=== PATIENT | male | born 1945 | race Caucasian/White ===

== ENCOUNTER 2022-12-10 09:22 | Outpatient (CLI) | payer MEDICARE, BC, SELFPAY | END 2022-12-10 09:23 | disposition home or self-care (01) | LOC: NFLDREF 12-12 09:11 | PROVIDERS: Visit Provider Nurse Practitioner Family | DX: R35.89 Other polyuria (principal); N39.0 Urinary tract infection, site not specified | CPT/HCPCS: 87086; 87186 ==

== ENCOUNTER 2023-10-12 20:20 | Inpatient (IN) | payer MEDICARE, BC, SELFPAY ==
[2023-10-12 20:24] VITALS: BP 128/88; PULSE 108; RESP 18; TEMP 37.3; O2SAT 96; BMI 25.8
--- NOTE | 2023-10-12 20:41 | CT_ITS ---
Patient: BRYAN RUBIO Facility:?[facility] Patient ID:?[id number] Site Patient ID:?[id number] Site :?[id number] Study:?CT-Abdomen/Pelvis 89CC ISOVUE 370-10/12/2023 9:25:37 PM Ordering Physician:?DR. MONK Final Report: INDICATION: Right lower quadrant pain. TECHNIQUE: CT abdomen and pelvis acquired with 89 cc Isovue 370 IV contrast. COMPARISON: None. FINDINGS: Lower chest: Bibasilar atelectasis. Liver: Unremarkable. Normal in size and attenuation. No suspicious masses. Gallbladder and bile ducts: Unremarkable. No stones or inflammation. No biliary ductal dilatation. Spleen: Unremarkable. Normal in size. No masses. Adrenal glands: Unremarkable. No nodules. Pancreas: Unremarkable. No mass or inflammation. Kidneys: Right parapelvic cysts. Multiple bilateral nonobstructive renal calculi. No hydronephrosis. GI tract: Small hiatal hernia. Multiple fluid-filled distended loops of small bowel with a transition point in the right lower quadrant. Colonic diverticulosis without evidence of diverticulitis. Normal appendix. Lymph nodes: No lymphadenopathy. Vasculature: Scattered atherosclerotic calcifications. Omentum/Peritoneum/Abdominal Wall: Small amount of free fluid predominantly in the pelvis. No focal fluid collection. No free air. Pelvis: Unremarkable. Bones: Degenerative changes. IMPRESSION: 1. Small bowel obstruction. 2. Bilateral nonobstructive nephrolithiasis. 3. Colonic diverticulosis without evidence of diverticulitis. Please note that all CT scans at this facility use dose modulation, iterative reconstruction, and/or weight-based dosing when appropriate to reduce radiation dose to as low as reasonably achievable. Dictated by Yaw Bella MD @ 10/12/2023 10:26:03 PM Signed by:?Yaw Bella MD @10/12/2023 10:26:03 PM (Electronic Signature)
--- NOTE | 2023-10-12 20:44 | ED.ABDPAIN ---
HPI - Abdominal Pain General Chief Complaint: Abdominal Pain Stated Complaint: Stomach pain and vomiting Time Seen by Provider: 10/12/23 20:24 History of Present Illness HPI narrative: This 78-year-old male comes in reporting 2 days of abdominal pain with nausea and vomiting. He states that he vomited about 6 times today. He has not taken anything to eat and states that he has not had any bowel movement or gas today. He does not have a prior surgery history to his abdomen. He states that he felt diaphoretic but did not actually measure a temperature. He reports that his pain is better managed we if he remains still. The pain is a constant pain. Related Data Home Medications Medication Instructions Recorded Confirmed losartan 50 mg tablet 50 mg PO DAILY 12/10/22 12/10/22 rosuvastatin 20 mg tablet 20 mg PO QPM 12/10/22 12/10/22 Previous Rx's Medication Instructions Recorded sulfamethoxazole 800 1 tab PO BID #14 tabs 12/10/22 mg-trimethoprim 160 mg tablet (Bactrim DS) Allergies Allergy/AdvReac Type Severity Reaction Status Date / Time No Known Drug Allergies Allergy Verified 10/12/23 21:26 Review of Systems Status of ROS Reports: 10 or more systems reviewed and unremarkable except as noted in History and below Narrative Constitutional: No fevers, no weight gain or loss. Eyes: No discharge. No vision changes. HENT: No congestion, no sore throat, no ear pain. Cardiovascular: No chest pain, no palpitations. Respiratory: No shortness of breath, no wheezes, no cough. Gastrointestinal: Right lower quadrant abdominal pain with nausea and vomiting. Genitourinary: No dysuria, no hematuria. Musculoskeletal: Normal range of motion. Skin: No rashes, no pruritis. Neurological: No dizziness, weakness, sensory change, speech change. Endo/Heme/Allergies: No bruising or bleeding. No polydipsia. Pysch: no suicidality, no anxiety, no insomnia. All other systems reviewed and are negative. [facility] Medical History (Updated 10/12/23 @ 23:13 by Ernie Pressley MD) UTI (urinary tract infection) ?N39.0 - Urinary tract infection, site not specified (ICD-10) Social History Smoking Status: Never smoker Exam Narrative: Exam Narrative: Constitutional: Well-developed, well-nourished, no acute distress. HEENT: Normocephalic, atraumatic. Neck: Normal range of motion. Nontender. Supple. Heart: Regular. No murmurs. Normal rate. Intact distal pulses. Lungs: Clear to auscultation. No chest discomfort. No wheezes, rhonchi, or rales. Abdomen: Decreased bowel sounds. Tenderness across the lower abdomen, right greater than left. Mild rebound tenderness. Genitalia: Deferred. Back: No midline tenderness. Normal range of motion. Extremities: Normal range of motion. No injury. Skin: Intact. No rash. Warm. No erythema or pallor. Neurologic: No altered sensation. No weakness. Alert and oriented. Psychiatric: No suicidality. No anxiety or depression. No insomnia. Nursing notes and vitals signs are reviewed. Const: Vital Signs, click to edit/add: Vital Signs - 24 hr 10/12/23 20:24 Temperature 99.2 F Pulse Rate [Left P ulse Oximeter] 108 H Respiratory Rate 18 Blood Pressure [Le ft Upper Arm] 128/88 Pulse Oximetry 96 Oxygen Delivery Me thod Room Air Course Vital Signs Vital signs: Initial Vital Signs Temperature 99.2 F 10/12/23 20:24 Temperature Source Temporal Artery Scan 10/12/23 20:24 Pulse Rate 108 H 10/12/23 20:24 Pulse Rhythm Regular 10/12/23 20:24 Respiratory Rate 18 10/12/23 20:24 Blood Pressure 128/88 10/12/23 20:24 Blood Pressure Mean 101 10/12/23 20:24 Blood Pressure Position Sitting 10/12/23 20:24 Pulse Oximetry 96 10/12/23 20:24 Oxygen Delivery Method Room Air 10/12/23 20:24 Vital Signs Temperature 99.2 F 10/12/23 20:24 Pulse Rate 108 H 10/12/23 20:24 Respiratory Rate 18 10/12/23 20:24 Blood Pressure 128/88 10/12/23 20:24 Pulse Oximetry 96 10/12/23 20:24 Oxygen Delivery Method Room Air 10/12/23 20:24 Temperature 99.2 F 10/12/23 20:24 Pulse Rate 108 H 10/12/23 20:24 Respiratory Rate 18 10/12/23 20:24 Blood Pressure 128/88 10/12/23 20:24 Pulse Oximetry 96 10/12/23 20:24 Oxygen Delivery Method Room Air 10/12/23 20:24 Medications Administered Medications: Discontinued Medications Generic Name Dose Route Start Last Admin Trade Name Danii PRN Reason Stop Dose Admin Hydromorphone HCl 0.5 mg 10/12/23 20:43 10/12/23 21:00 Hydromorphone 0.5 Mg/0.5 Ml Inj IVP 10/12/23 20:44 0.5 mg ONCE ONE Administration Sodium Chloride 1,000 mls @ 1,000 mls/hr 10/12/23 20:45 10/12/23 22:11 0.9 % Sodium Chloride 1000 Ml IV 10/12/23 21:44 Infused .Q1H MICHAEL Infusion Ondansetron HCl 4 mg 10/12/23 20:43 10/12/23 21:17 Ondansetron 2 Mg/Ml Inj IVP 10/12/23 20:44 4 mg ONCE ONE Administration MDM - Abdominal Pain MDM Narrative Medical decision making narrative: This patient comes in with abdominal pain as described above. He has had persistent vomiting and reports no gas her stool being passed in the last day or so. A CT scan of the abdomen and pelvis is obtained and returns with evidence of bowel obstruction with a transition point in the right lower quadrant. He does have a white count of around 20,000 but also his hemoglobin is elevated at 17.7. He clearly is volume depleted and did receive a L of normal saline initially. Additional fluids are ordered and administered in the process of admission into the hospital. I did speak with the surgeon on-call, Dr. Sevilla, regarding these findings. His lactate level returns in normal range. Dr. Easton agrees to admit him into the hospital for ongoing management. Lab Data Labs: Lab Results 10/12/23 10/12/23 Range/Units 20:39 22:50 WBC 20.49 H (4.50-11.00) K/uL RBC 5.97 H (4.30-5.90) m/uL Hgb 17.7 H (13.5-17.5) gm/dL Hct 53.0 (37.0-53.0) % MCV 89 (80-100) fL MCH 30 (26-34) pg MCHC 33 (32-36) gm/dL RDW Coeff of Jani 12.6 (11.5-15.5) % Plt Count 312 (140-440) K/uL Neut % (Auto) 91.2 H (42.0-72.0) % Lymph % (Auto) 4.4 L (20-44) % Towner % (Auto) 4.1 (0.0-11.0) % Eos % (Auto) 0.0 (0.0-7.0) % Baso % (Auto) 0.1 (0.0-3.0) % Neut # (Auto) 18.70 H (1.7-7.0) K/uL Lymph # (Auto) 0.90 (0.90-2.90) K/uL Towner # (Auto) 0.80 (0.00-0.90) K/UL Eos # (Auto) 0.00 (0.00-0.50) K/uL Baso # (Auto) 0.00 (0.00-0.30) K/uL Abs Immat Gran (auto) 0.00 (0.00-0.30) K/uL Imm/Tot Granulo (auto) 0.2 % Sodium 140 (135-149) mmol/L Potassium 4.1 (3.6-5.1) mmol/L Chloride 108 (96-114) mmol/L Carbon Dioxide 26 (20-32) mmol/L Anion Gap 6 L (7-15) mEq/L BUN 17 (7-30) mg/dL Creatinine 1.0 (0.5-1.5) mg/dL Estimated Creat Clear 64.89 Estimated GFR 78 ml/min Glucose 144 H (60-115) mg/dL Lactate 0.9 (0.5-1.9) mmol/L Calcium 9.4 (8.4-10.6) mg/dL Imaging Data CT scan - abdomen: Radiologist's impression: FINDINGS: Lower chest: Bibasilar atelectasis. Liver: Unremarkable. Normal in size and attenuation. No suspicious masses. Gallbladder and bile ducts: Unremarkable. No stones or inflammation. No biliary ductal dilatation. Spleen: Unremarkable. Normal in size. No masses. Adrenal glands: Unremarkable. No nodules. Pancreas: Unremarkable. No mass or inflammation. Kidneys: Right parapelvic cysts. Multiple bilateral nonobstructive renal calculi. No hydronephrosis. GI tract: Small hiatal hernia. Multiple fluid-filled distended loops of small bowel with a transition point in the right lower quadrant. Colonic diverticulosis without evidence of diverticulitis. Normal appendix. Lymph nodes: No lymphadenopathy. Vasculature: Scattered atherosclerotic calcifications. Omentum/Peritoneum/Abdominal Wall: Small amount of free fluid predominantly in the pelvis. No focal fluid collection. No free air. Pelvis: Unremarkable. Bones: Degenerative changes. IMPRESSION: 1. Small bowel obstruction. 2. Bilateral nonobstructive nephrolithiasis. 3. Colonic diverticulosis without evidence of diverticulitis. Discharge Plan Discharge Clinical Impression: Bowel obstruction Patient Disposition: Admitted As Observation Condition: Unchanged Prescriptions: No Action losartan 50 mg tablet 50 mg PO DAILY rosuvastatin 20 mg tablet 20 mg PO QPM sulfamethoxazole-trimethoprim [Bactrim DS] 800-160 mg tablet 1 tab PO BID Qty: 14 0RF Follow Up/Referrals: Provider,Not a Local [Primary Care Provider] -
[2023-10-12 20:51] LABS: Basophils Percent Auto 0.1 % (0.0-3.0); Hemoglobin* 17.7 gm/dL (13.5-17.5); Immature Granulocytes Pct Auto 0.2 %; Lymphocytes Percent Auto 4.4 % (20-44); Mean Corpuscular HGB Conc 33 gm/dL (32-36); Mean Corpuscular Hemoglobin 30 pg (26-34); Mean Corpuscular Volume 89 fL (80-100); Monocytes Percent Auto 4.1 % (0.0-11.0); Neutrophils Percent Auto 91.2 % (42.0-72.0); Platelet Count* 312 K/uL (140-440); RDW Coefficient of Variation % 12.6 % (11.5-15.5); Red Blood Count 5.97 m/uL (4.30-5.90); White Blood Count* 20.49 K/uL (4.50-11.00)
[2023-10-12] MEDS: HYDROmorphone 0.5 mg/0.5 ml inj IVP (21:00)
[2023-10-12 21:01] LABS: Slide Review Reflex No
[2023-10-12 21:05] LABS: Chloride* 108 mmol/L (96-114); Potassium* 4.1 mmol/L (3.6-5.1); Sodium* 140 mmol/L (135-149)
[2023-10-12 21:08] LABS: Anion Gap 6 mEq/L (7-15); Blood Urea Nitrogen* 17 mg/dL (7-30); Carbon Dioxide* 26 mmol/L (20-32); Est. Creatinine Clearance* 64.89; Estimated Glomerular Filt Rate 78 ml/min
[2023-10-12 21:09] LABS: Calcium* 9.4 mg/dL (8.4-10.6); Glucose* 144 mg/dL (60-115)
[2023-10-12] MEDS: ONDANSETRON 2 MG/ML inj 4 MG IVP (21:17)
[2023-10-12] MEDS: 0.9 % SODIUM CHLORIDE 1000 ml 1,000 ML IV (21:18)
[2023-10-12 22:54] LABS: Lactate* 0.9 mmol/L (0.5-1.9)
[2023-10-12 23:10] LABS: Albumin* 3.7 g/dL (3.3-5.0)
[2023-10-12 23:13] LABS: Alkaline Phosphatase* 77 U/L (40-150); Aspartate Amino Transferase* 20 U/L (12-35); Bilirubin Total* 1.5 mg/dL (0.1-1.5); Total Protein* 6.5 g/dL (6.0-8.3)
--- NOTE | 2023-10-12 23:13 | PM.EN ---
Chart Event Note Chart Event Note: Called by ER about this patient with 2 days of abdominal pain. CT showing de gonzalo bowel obstruction, WBC returned markedly elevated at 20 but also with hgb of 17.7 - has been vomiting x 2 days - likely a component of hemoconcentration. Tachycardic to 108 which resolved with fluids. Lactate normal. No sign of bowel ischemia or internal hernia or mass on CT. discussed with hospitalist. WBC is concerning. will give fluids for dehydration and monitor overnight. If pain worsens, patient again develops tachycardia, fever or any other worsening changes, will plan on emergent exploration. Recheck labs in the morning and I will follow up with patient. Will consider gastrograffin challenge in the morning if patient is stable. I did not examine the patient at the time of this note.
[2023-10-12 23:14] LABS: Alanine Aminotransferase* 24 U/L (4-50)
[2023-10-12] MEDS: LACTATED RINGERS 1000 ML 1,000 ML IV (23:20)
--- NOTE | 2023-10-12 23:29 | PM.IMHP1 ---
Hospitalist- H&P: HPI History of Present Illness Date Seen: 10/12/23 Chief complaint: Stomach pain and vomiting Narrative: Clive Buck is a 78 year old male with history of hypertension, kidney stones, tubular adenomas in his colon, gastroesophageal reflux presents with a 1 day history of low abdominal pain and recurrent vomiting. Patient reports he was in his usual state of health yesterday. He ate a normal meal last evening. After that meal he started to have some low abdominal discomfort. He felt the discomfort through the night and this morning started vomiting up last night's dinner. Today he is not passing gas and has not had a bowel movement. He had a normal bowel movement yesterday. He has not had a fever but has been diaphoretic when vomiting. He has no previous history of abdominal surgery. 2 years ago he had a colonoscopy with multiple tubular adenomas. Repeat colonoscopy 1 year ago also showed tubular adenomas and he was recommended to have a another colonoscopy in 3 years. Review of Systems Narrative: Except as noted above he has had no recent illness or injury. No cold or cough, shortness of breath, chest pain. No previous problems with abdominal pain or vomiting. No other gastrointestinal illnesses. Previous history of kidney stones. No current urinary symptoms. [facility] Medical History (Updated 10/12/23 @ 23:41 by Desmond Easton MD) Small bowel obstruction ?K56.609 - Unspecified intestinal obstruction, unspecified as to partial versus complete obstruction (ICD-10) Low testosterone in male ?R79.89 - Other specified abnormal findings of blood chemistry (ICD-10) Gastroesophageal reflux disease ?K21.9 - Gastro-esophageal reflux disease without esophagitis (ICD-10) Hyperlipidemia ?E78.5 - Hyperlipidemia, unspecified (ICD-10) Hypertension ?I10 - Essential (primary) hypertension (ICD-10) Tubular adenoma of colon ?D12.6 - Benign neoplasm of colon, unspecified (ICD-10) Nephrolithiasis ?N20.0 - Calculus of kidney (ICD-10) UTI (urinary tract infection) ?N39.0 - Urinary tract infection, site not specified (ICD-10) Surgical History (Updated 10/12/23 @ 23:34 by Desmond Easton MD) History of colonoscopy ?Z98.890 - Other specified postprocedural states (ICD-10) Family History (Updated 10/12/23 @ 23:35 by Desmond Easton MD) Mother Colon cancer Father Esophageal cancer Brother Plasma cell leukemia Social History (Updated 10/12/23 @ 23:36 by Desmond Easton MD) Narrative: He lives in [place] with his . 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 He does not smoke. He drinks 1-2 alcoholic beverages per week. Smoking Status: Never smoker Meds Home Medications and Allergies Home Medications Medication Instructions Recorded Confirmed Type losartan 50 mg tablet 50 mg PO DAILY 12/10/22 10/12/23 History rosuvastatin 20 mg tablet 20 mg PO QPM 12/10/22 10/12/23 History famotidine 20 mg tablet 20 mg PO DAILY 10/12/23 10/12/23 History Allergies Allergy/AdvReac Type Severity Reaction Status Date / Time No Known Drug Allergies Allergy Verified 10/12/23 21:26 Exam Narrative: Exam Narrative: He is alert and appears in no distress. He gives his own history. Eyes normal. Sclerae nonicteric. Oropharynx with dry mucous membranes. Neck is supple without mass or adenopathy. Respirations are clear to auscultation. Cardiovascular: S1, S2, regular rate and rhythm. No murmur gallop or rub. Abdomen: Bowel sounds are diminished. Abdomen is soft. He has moderate right lower quadrant tenderness. No other tenderness. No mass. No peritonitis. Abdomen is not particularly distended. External genitalia normal. Extremities without edema. Good peripheral perfusion. Intact pulses. No rash Const: Vital Signs, click to edit/add: Vital Signs - 24 hr 10/12/23 20:24 Temperature 99.2 F Pulse Rate [Left P ulse Oximeter] 108 H Respiratory Rate 18 Blood Pressure [Le ft Upper Arm] 128/88 Pulse Oximetry 96 Oxygen Delivery Me thod Room Air Documenting provider has reviewed patient's vital signs: yes Hospitalist - H&P: Result Labs Labs: Short CBC 10/12/23 Range/Units 20:39 WBC 20.49 H (4.50-11.00) K/uL Hgb 17.7 H (13.5-17.5) gm/dL Hct 53.0 (37.0-53.0) % Plt Count 312 (140-440) K/uL BMP 10/12/23 20:39 Sodium 140 Potassium 4.1 Chloride 108 Carbon Dioxide 26 BUN 17 Creatinine 1.0 Glucose 144 H Calcium 9.4 Liver Function 10/12/23 Range/Units 22:50 Total Bilirubin 1.5 (0.1-1.5) mg/dL Direct Bilirubin 0.0 (0.0-0.5) mg/dL AST 20 (12-35) U/L ALT 24 (4-50) U/L Alkaline Phosphatase 77 (40-150) U/L Albumin 3.7 (3.3-5.0) g/dL Imaging CT scan - abdomen: Radiologist's impression: INDICATION: Right lower quadrant pain. TECHNIQUE: CT abdomen and pelvis acquired with 89 cc Isovue 370 IV contrast. COMPARISON: None. FINDINGS: Lower chest: Bibasilar atelectasis. Liver: Unremarkable. Normal in size and attenuation. No suspicious masses. Gallbladder and bile ducts: Unremarkable. No stones or inflammation. No biliary ductal dilatation. Spleen: Unremarkable. Normal in size. No masses. Adrenal glands: Unremarkable. No nodules. Pancreas: Unremarkable. No mass or inflammation. Kidneys: Right parapelvic cysts. Multiple bilateral nonobstructive renal calculi. No hydronephrosis. GI tract: Small hiatal hernia. Multiple fluid-filled distended loops of small bowel with a transition point in the right lower quadrant. Colonic diverticulosis without evidence of diverticulitis. Normal appendix. Lymph nodes: No lymphadenopathy. Vasculature: Scattered atherosclerotic calcifications. Omentum/Peritoneum/Abdominal Wall: Small amount of free fluid predominantly in the pelvis. No focal fluid collection. No free air. Pelvis: Unremarkable. Bones: Degenerative changes. IMPRESSION: 1. Small bowel obstruction. 2. Bilateral nonobstructive nephrolithiasis. 3. Colonic diverticulosis without evidence of diverticulitis. Assessment and Plan Assessment and plan (1) Small bowel obstruction: Problem comment: Small-bowel obstruction with no apparent cause. Consult General surgery. Supportive cares with IV fluids. Pain medication. NPO. NG tube if recurrent vomiting. Status: Acute Plan Patient is admitted the hospital for management of small bowel obstruction of uncertain etiology. Consult surgery. Supportive cares with IV fluids and IV pain medication. Monitoring for clinical deterioration which would likely lead to surgical intervention. Total Time Spent Total Time Spent: Total time spent is 80 minutes, 50 minutes in coordination of care and discussing with patient, and other providers ongoing evaluation and management of small bowel obstruction.
[2023-10-12 23:35] VITALS: BP 143/81; PULSE 72; RESP 18; TEMP 36.4; O2SAT 96
[2023-10-12 23:39] VITALS: BP 143/81; PULSE 72; RESP 18; TEMP 36.4; O2SAT 96; BMI 26.2
[2023-10-13] VITALS (21 sets, daily range): BP systolic 105–150; BP diastolic 60–93; PULSE 51–75; RESP 12–22; TEMP 36.1–36.8; O2SAT 9–100
[2023-10-13] MEDS: LACTATED RINGERS 1000 ML 1,000 ML 125 ML IV ×2 (00:31→10:02)
[2023-10-13] MEDS: HYDROmorphone 0.5 mg/0.5 ml inj IVP (00:34)
[2023-10-13 06:24] LABS: Lactate* 0.9 mmol/L (0.5-1.9)
[2023-10-13 06:37] LABS: Basophils Percent Auto 0.1 % (0.0-3.0); Eosinophils Percent Auto 0.3 % (0.0-7.0); Hematocrit 43.9 % (37.0-53.0); Hemoglobin* 14.6 gm/dL (13.5-17.5); Immature Granulocytes Pct Auto 0.1 %; Lymphocytes Percent Auto 7.2 % (20-44); Mean Corpuscular HGB Conc 33 gm/dL (32-36); Mean Corpuscular Hemoglobin 30 pg (26-34); Mean Corpuscular Volume 90 fL (80-100); Monocytes Percent Auto 8.3 % (0.0-11.0); Platelet Count* 230 K/uL (140-440); Red Blood Count 4.88 m/uL (4.30-5.90)
[2023-10-13 06:38] LABS: Slide Review Reflex No
[2023-10-13 06:48] LABS: Chloride* 112 mmol/L (96-114); Potassium* 4.1 mmol/L (3.6-5.1); Sodium* 139 mmol/L (135-149)
--- NOTE | 2023-10-13 06:50 | PC.NURSE ---
End of shift note: Pt arrived to med/surg unit at 2330 last evening. He is alert & oriented x 4 and able to make needs known. He denied nausea when asked throughout the shift with no vomiting noted throughout the shift. Bowel sounds noted to be diminished/hypoactive and pt reports tenderness to RLQ when asked. PRN Dilaudid given for abdominal pain. LR running at 125 mL/hr after pt received 1 L of LR per order. Pt has been continent of bladder and is up independently in room. Order for NPO diet currently in place. VSS. EKG completed per order with NSR noted. Pt?s Terri requests that staff call her if pt has to have surgery. Pt refused SCDs and MARKY stockings this shift despite education provided. Pt states abdominal pain is minimal when asked this morning and declined PRN Dilaudid when offered.
[2023-10-13 06:51] LABS: Anion Gap 1 mEq/L (7-15); Blood Urea Nitrogen* 15 mg/dL (7-30); Carbon Dioxide* 26 mmol/L (20-32); Creatinine* 0.9 mg/dL (0.5-1.5); Est. Creatinine Clearance* 64.89; Estimated Glomerular Filt Rate 89 ml/min; Glucose* 114 mg/dL (60-115)
[2023-10-13 06:52] LABS: Calcium* 8.2 mg/dL (8.4-10.6)
--- NOTE | 2023-10-13 08:28 | P.GSCN_ITS ---
History of Present Illness Consult details Date Seen: 10/13/23 Consult date: 10/13/23 Narrative: On is a 78-year-old male who presented to the emergency department last evening with abdominal pain for several days. He states that Monday evening he ate and then he developed pain and gas. He thought it was something that he ate. He states that he had an odd taste in his mouth with this. Yesterday he went to go to the bathroom and he vomited undigested food. However his pain continued. He thought that if it had been something he had eaten he might of had diarrhea, however he has not really had a bowel movement since this started. He states he strained and tried to have a bowel movement which resulted in a very small bowel movement. He has had persistent pain as well as nausea and vomiting all day yesterday. He stated that he has felt weak and also had chills as well as a headache. He has not had a fever. He states the pain is worse with certain positions. It is mainly in his right lower quadrant. He has never had anything like this before. Pain medication has helped to dull the pain however it is still present. He states that yesterday he thinks he may have vomited at least a gal of liquid. He has had regular colonoscopies and has had large tubular adenomas in the past. His last colonoscopy was a 3 year follow-up. He has not eaten in 2 days. He was found in the ER to have what appeared to be a small bowel obstruction with a transition point in the right lower quadrant. Initially his white count was very high at 20 however his hemoglobin was 17.7, indicating hemoconcentration. Therefore, decision was made to observe him overnight given that he did not have signs of peritonitis and lactate was normal. This morning he continues to have pain which is better he states because of pain medication, however still present. No further nausea. He has not had any gas or bowel movement. [facility] Medical History (Updated 10/12/23 @ 23:41 by Desmond Easton MD) Small bowel obstruction ?K56.609 - Unspecified intestinal obstruction, unspecified as to partial versus complete obstruction (ICD-10) Low testosterone in male ?R79.89 - Other specified abnormal findings of blood chemistry (ICD-10) Gastroesophageal reflux disease ?K21.9 - Gastro-esophageal reflux disease without esophagitis (ICD-10) Hyperlipidemia ?E78.5 - Hyperlipidemia, unspecified (ICD-10) Hypertension ?I10 - Essential (primary) hypertension (ICD-10) Tubular adenoma of colon ?D12.6 - Benign neoplasm of colon, unspecified (ICD-10) Nephrolithiasis ?N20.0 - Calculus of kidney (ICD-10) UTI (urinary tract infection) ?N39.0 - Urinary tract infection, site not specified (ICD-10) Surgical History (Updated 10/12/23 @ 23:34 by Desmond Easton MD) History of colonoscopy ?Z98.890 - Other specified postprocedural states (ICD-10) Family History (Updated 10/13/23 @ 08:34 by Parisa Sevilla MD) Mother Colon cancer Father Esophageal cancer Brother Plasma cell leukemia Social History (Updated 10/12/23 @ 23:36 by Desmond Easton MD) Narrative: He lives in [place] with his . 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 He does not smoke. He drinks 1-2 alcoholic beverages per week. What is your current living situation?: I presently have a place to live Problems where you live: no known problems Problems where you live details: N/A In the past 12 months, utilities in danger of being shut off: no In past 12 months, lack of transportation kept you from medical appts, meetings, work, or getting things needed for daily living: no In the past 12 mos, have been you worried that your food would run out before you had money to buy more?: never true In the past 12 mos, the food you bought just didn't last and you didn't have money to buy more?: never true Highest level of school completed/degree received: Master's degree Smoking Status: Never smoker Do you use any of these nicotine containing products: None Second hand tobacco smoke exposure: No How often do you have a drink containing alcohol: never How often do you have six or more drinks on one occasion: Never AUDIT-C Alcohol total score: 0 Non-prescribed substance use: denies use Caffeine: No How often does anyone, including family, friends and others, physically hurt you : never How often does anyone, including family, friends and others, insult or talk down to you: never How often does anyone, including family, friends and others, threaten you with harm: never How often does anyone, including family, friends and others, scream or curse at you: never service: No Meds Home Medications and Allergies Home Medications Medication Instructions Recorded Confirmed Type losartan 50 mg tablet 50 mg PO DAILY 12/10/22 10/12/23 History rosuvastatin 20 mg tablet 20 mg PO QPM 12/10/22 10/12/23 History famotidine 20 mg tablet 20 mg PO DAILY 10/12/23 10/12/23 History Allergies Allergy/AdvReac Type Severity Reaction Status Date / Time No Known Drug Allergies Allergy Verified 10/12/23 21:26 Exam Narrative: Exam Narrative: General appearance: Alert, cooperative, and in no distress Eyes: PERRLA, eye lids clear, and sclera white HENT Head: Normocephalic Ears: External ears normal Pulmonary: Breathing nonlabored on room air Cardiovascular Heart: Regular rate Extremities: warm and well perfused Gastrointestinal Abdominal: No scars. Abdomen is possibly mildly distended. It is soft. He is fairly focally tender in the right lower quadrant. He has no guarding or rebound. Musculoskeletal: Extremities: Upper: Both upper extremities have normal joint range of motion and intact strength. Lower: Both lower extremities have normal joint range of motion and intact strength. Skin: Normal skin color, texture, and turgor. Neurologic: No focal deficits Psychiatric: Alert, oriented, cooperative, normal affect. Const: Vital Signs, click to edit/add: Vital Signs - 24 hr 10/12/23 20:24 10/12/23 23:35 10/12/23 23:39 Temperature 99.2 F 97.6 F 97.6 F Pulse Rate [Left P ulse Oximeter] 108 H Pulse Rate [Right Pulse Oximeter] 72 72 Respiratory Rate 18 18 18 Blood Pressure [Le ft Upper Arm] 128/88 Blood Pressure [Ri ght Arm] 143/81 H 143/81 H Pulse Oximetry 96 96 96 Oxygen Delivery Me thod Room Air Room Air Room Air 10/13/23 00:00 10/13/23 03:22 Temperature 97.8 F Pulse Rate [Left P ulse Oximeter] Pulse Rate [Right Pulse Oximeter] 66 Respiratory Rate 18 16 Blood Pressure [Le ft Upper Arm] Blood Pressure [Ri ght Arm] 117/70 Pulse Oximetry 96 91 Oxygen Delivery Me thod Room Air Room Air Results Labs Labs: Abnormal lab results 10/12/23 10/13/23 Range/Units 20:39 06:02 WBC 20.49 H 15.10 H (4.50-11.00) K/uL RBC 5.97 H (4.30-5.90) m/uL Hgb 17.7 H (13.5-17.5) gm/dL Neut % (Auto) 91.2 H 84.0 H (42.0-72.0) % Lymph % (Auto) 4.4 L 7.2 L (20-44) % Neut # (Auto) 18.70 H 12.70 H (1.7-7.0) K/uL Treasure # (Auto) 1.30 H (0.00-0.90) K/UL Anion Gap 6 L 1 L (7-15) mEq/L Glucose 144 H (60-115) mg/dL Calcium 8.2 L (8.4-10.6) mg/dL Diabetes panel 10/12/23 10/12/23 10/13/23 Range/Units 20:39 22:50 06:02 Sodium 140 139 (135-149) mmol/L Potassium 4.1 4.1 (3.6-5.1) mmol/L Chloride 108 112 (96-114) mmol/L Carbon Dioxide 26 26 (20-32) mmol/L BUN 17 15 (7-30) mg/dL Creatinine 1.0 0.9 (0.5-1.5) mg/dL Glucose 144 H 114 (60-115) mg/dL Calcium 9.4 8.2 L (8.4-10.6) mg/dL AST 20 (12-35) U/L ALT 24 (4-50) U/L Alkaline Phosphatase 77 (40-150) U/L Total Protein 6.5 (6.0-8.3) g/dL Albumin 3.7 (3.3-5.0) g/dL Calcium panel 10/12/23 10/12/23 10/13/23 Range/Units 20:39 22:50 06:02 Calcium 9.4 8.2 L (8.4-10.6) mg/dL Albumin 3.7 (3.3-5.0) g/dL Pituitary panel 10/12/23 10/13/23 Range/Units 20:39 06:02 Sodium 140 139 (135-149) mmol/L Potassium 4.1 4.1 (3.6-5.1) mmol/L Chloride 108 112 (96-114) mmol/L Carbon Dioxide 26 26 (20-32) mmol/L BUN 17 15 (7-30) mg/dL Creatinine 1.0 0.9 (0.5-1.5) mg/dL Glucose 144 H 114 (60-115) mg/dL Calcium 9.4 8.2 L (8.4-10.6) mg/dL Adrenal panel 10/12/23 10/12/23 10/13/23 Range/Units 20:39 22:50 06:02 Sodium 140 139 (135-149) mmol/L Potassium 4.1 4.1 (3.6-5.1) mmol/L Chloride 108 112 (96-114) mmol/L Carbon Dioxide 26 26 (20-32) mmol/L BUN 17 15 (7-30) mg/dL Creatinine 1.0 0.9 (0.5-1.5) mg/dL Glucose 144 H 114 (60-115) mg/dL Calcium 9.4 8.2 L (8.4-10.6) mg/dL Total Bilirubin 1.5 (0.1-1.5) mg/dL AST 20 (12-35) U/L ALT 24 (4-50) U/L Alkaline Phosphatase 77 (40-150) U/L Total Protein 6.5 (6.0-8.3) g/dL Albumin 3.7 (3.3-5.0) g/dL All other labs normal. Imaging Abdomen CT scan report/results: report reviewed and image reviewed Additional studies: CT Scan Report Patient: Bryan Rubio V MR#: [id number] : 1945 Acct:[id number] Loc: [id number] Service Date: 10/12/[address]: Desmond Easton M.D. Ordering Physician: Ernie Pressley M.D. Date of Service: 10/12/23 Procedure(s): CT abdomen pelvis w con Accession Number(s): [id number] cc: Ernie Pressley M.D.; Provider,Not a Local~ Patient: BRYAN RUBIO Facility:?[facility] Patient ID:?[id number] Site Patient ID:?[id number] Site :?1945 Study:?CT-Abdomen/Pelvis 89CC ISOVUE 370-10/12/2023 9:25:37 PM Ordering Physician:?DR. PRESSLEY Final Report: INDICATION: Right lower quadrant pain. TECHNIQUE: CT abdomen and pelvis acquired with 89 cc Isovue 370 IV contrast. COMPARISON: None. FINDINGS: Lower chest: Bibasilar atelectasis. Liver: Unremarkable. Normal in size and attenuation. No suspicious masses. Gallbladder and bile ducts: Unremarkable. No stones or inflammation. No biliary ductal dilatation. Spleen: Unremarkable. Normal in size. No masses. Adrenal glands: Unremarkable. No nodules. Pancreas: Unremarkable. No mass or inflammation. Kidneys: Right parapelvic cysts. Multiple bilateral nonobstructive renal calculi. No hydronephrosis. GI tract: Small hiatal hernia. Multiple fluid-filled distended loops of small bowel with a transition point in the right lower quadrant. Colonic diverticulosis without evidence of diverticulitis. Normal appendix. Lymph nodes: No lymphadenopathy. Vasculature: Scattered atherosclerotic calcifications. Omentum/Peritoneum/Abdominal Wall: Small amount of free fluid predominantly in the pelvis. No focal fluid collection. No free air. Pelvis: Unremarkable. Bones: Degenerative changes. IMPRESSION: 1. Small bowel obstruction. 2. Bilateral nonobstructive nephrolithiasis. 3. Colonic diverticulosis without evidence of diverticulitis. Progress Note:A&P Assessment and plan (1) Small bowel obstruction: Status: Acute Plan The patient is a 78-year-old male with de Mushtaq small bowel obstruction. I discussed the situation with the patient and his . I explained that last and I was very concerned by his markedly elevated white blood cell count, however this was also in the setting of a hemoglobin which was also markedly elevated and 2 days of vomiting without any oral intake. He was watched overnight, however today his pain is slightly though not markedly improved and he still has a fairly elevated white blood cell count at 15. I think that for this reason exploration is warranted. I discussed the cause of bowel obstructions and that often times even in the setting of no prior surgery these can be adhesive in nature. However an additional reason for exploration is to rule out a mass causing the obstruction. Adhesive small bowel obstructions can get better with conservative management, however because again he still has an elevated white blood cell count after fluid administration overnight, I a.m. concerned that he could have bowel compromise and therefore proceeding to the OR is prudent. We discussed that I will attempt to perform the surgery laparoscopically though there is a risk that I may need to convert to laparotomy. There is also possibility of bowel resection as well. We discussed the risks and benefits as well as recovery of the procedure. He is agreeable to proceed and we will plan on surgery urgently this morning.
[2023-10-13] MEDS: PIPERACILLIN/TAZOBACTAM 3.375 GM INJ IVPB (09:46)
[2023-10-13] MEDS: BUPIVACAINE 0.25% 30 ML INJECTION (10:30)
--- NOTE | 2023-10-13 10:54 | P.GSOP_ITS ---
Operative Note Date of procedure: 10/13/23 Pre-op diagnosis: Small-bowel obstruction Post-op diagnosis: Small-bowel obstruction from internal hernia Type of Procedure: 1. Exploratory laparoscopy 2. Lysis of adhesions Indications: The patient is a 78-year-old male who presented to the emergency department with nausea and vomiting as well as abdominal pain. CT scan showed a bowel obstruction with a transition point in the right lower quadrant. He was admitted overnight for observation and this morning was found to have a persistently elevated white count despite fluid resuscitation and had persistent right-sided pain. He also had never had surgery previously, therefore I recommended exploratory laparoscopy. He agreed to proceed. Procedure Description: After discussing the risks and benefits of the procedure, the patient signed informed consent.? The operative site was marked and the patient was brought to the operating room and placed on the operating table in supine position.? Care was taken to pad the patient's pressure points.?? The patient was then intubated by anesthesia.?? The operative site was then prepped and draped in the usual sterile fashion.? A time-out was then performed. Entrance to the abdomen was 1st attempted via a 5 mm optical trocar in the left upper quadrant. The layers of the abdominal wall were visualized. It appeared as though I had entered the abdominal cavity, however, it was unclear whether not the layer visualized at the and of the trocar was stomach or peritoneum. Wanted to avoid injury, I elected to proceed with an open Buchanan approach. I made an incision just above the umbilicus and dissected down to the fascia. This was incised. The peritoneum was then entered. A 12 mm Buchanan port was then placed. The abdomen was insufflated. The left upper quadrant was visualized and the port had not gone through the peritoneum. I then placed the 5 mm port left upper quadrant under direct vision. I placed an additional 5 mm port in the left lower quadrant also under direct vision. The patient was placed in Trendelenburg with the right-side up. The small bowel was noted to be dilated. It was somewhat reddened. There was no overt areas of ischemia. There was clear fluid noted in the pelvis. I turned my attention to the right lower quadrant. I started by identifying the appendix. Identified that the terminal ileum appeared to run posteriorly and was tethered to the retroperitoneum. As I followed this I discovered a fatty adhesion which wrapped around the mesentery of the segment of small bowel. This appeared to be an epiploic appendage from the sigmoid colon. I was unable to visualize where this was adherent, wrapping around the bowel. I was, however able to reduce the incarcerated small bowel. Of note, this small bowel appeared well perfused. There is no signs of ischemia. There was some hemorrhage noted on the mesentery at the proximal and distal points of incarceration, however all the bowel appeared viable without ischemia. Once this was reduced I was able to determine that the patient had formed an adhesive ring between epiploic appendages of the sigmoid colon. This was palpated. This was found to be soft. It appeared to be benign. I was able to pull this apart bluntly. I examined the tissue. There is no mass associated with it. There was no bleeding. Once this was done, I did run the small bowel from the ligament Treitz proximally to ensure that there were no additional areas of obstruction noted. The clear fluid was suctioned from the abdomen. The patient was placed flat and the ports were then removed. The abdomen was desufflated. The 12 mm port site fascia was closed with 0 Vicryl. The skin was then closed with absorbable subcuticular suture. Sterile dressings were then applied. Instrument sponge and needle counts were correct at the end of the case. The pa tient was then woken and transported to the PACU in stable condition. ? The patient tolerated the procedure well. Findings: 1. Adhesive band between epiploic appendages of the sigmoid colon, leading to internal hernia. 2. Small bowel viable. Anesthesia: GETA Surgeon: Parisa Sevilla MD Estimated blood loss (mL): 1 Condition: stable Disposition: PACU
--- NOTE | 2023-10-13 10:57 | W.ANESCHARGE ---
Anesthesia Charges Start Date/Time Anesthesia Start Date: 10/13/23 Anesthesia Start Time: 09:31 Stop Date/Time Anesthesia Stop Date: 10/13/23 Anesthesia Stop Time: 10:52
--- NOTE | 2023-10-13 11:01 | W.ANESCHARGE ---
Anesthesia Charges Start Date/Time Anesthesia Start Date: 10/13/23 Anesthesia Start Time: 09:31 Stop Date/Time Anesthesia Stop Date: 10/13/23 Anesthesia Stop Time: 10:52 Summary Extremes of Age - Over 70 or under 1: MDA
--- NOTE | 2023-10-13 11:21 | SUR.PHASEI ---
Patient meet anesthesia discharge criteria from PACU
[2023-10-13] MEDS: LACTATED RINGERS 1000 ML 1,000 ML 30 ML IV ×2 (13:49→21:44)
--- NOTE | 2023-10-13 15:52 | PM.IMPN1 ---
Progress Note: A&P Assessment and plan (1) Small bowel obstruction: Problem details: Small-bowel obstruction with no apparent cause on admission Discussed with General surgery, patient was taken to OR today. Okay to start clear liquid diet. Monitor for return of bowel function Pain and nausea management as needed Status: Acute (2) Hypertension: Problem details: Continue losartan, statin for hyperlipidemia Status: Acute Plan Discharge with tolerating advancing diet, return of bowel function Time Spent With Patient Total time spent: Total time spent caring for the patient today was 45 minutes. This includes time spent for the visit reviewing the chart, time spent during the visit, time spent after the visit and documentation and planning in coordination of care. Subjective Date Seen: 10/13/23 Interval history: Patient is seen postoperatively. Feeling okay. Pain currently adequately managed. Denies nausea or vomiting. Plan for today is to advance diet as tolerated with clears, awaiting bowel function. Exam Narrative: Exam Narrative: PHYSICAL EXAM General: Pleasant, conversant, NAD HEENT: Normocephalic, atraumatic, sclera white, EOMI, oral mucosa moist Cardiovascular: RRR, S1S2. No pitting edema Pulmonary: CTA bilaterally without rhonchi, rales, expiratory wheezes. No dyspnea Abdominal: Soft, appropriate postoperative tenderness, no guarding Neurological: Alert, answering questions appropriately, cranial nerves intact, no focal findings Extremities: No gross joint deformity or swelling. AROMI. Neurovascularly intact Skin: Warm, dry. Const: Vital Signs, click to edit/add: Vital Signs - 24 hr 10/12/23 20:24 10/12/23 23:35 10/12/23 23:39 Temperature 99.2 F 97.6 F 97.6 F Pulse Rate Pulse Rate [Left P ulse Oximeter] 108 H Pulse Rate [Right Pulse Oximeter] 72 72 Respiratory Rate 18 18 18 Blood Pressure Blood Pressure [Le ft Upper Arm] 128/88 Blood Pressure [Ri ght Arm] 143/81 H 143/81 H Pulse Oximetry 96 96 96 Oxygen Delivery Me thod Room Air Room Air Room Air Oxygen Flow Rate Fraction of Inspir ed Oxygen 10/13/23 00:00 10/13/23 03:22 10/13/23 07:30 Temperature 97.8 F 98.1 F Pulse Rate Pulse Rate [Left P ulse Oximeter] 64 Pulse Rate [Right Pulse Oximeter] 66 Respiratory Rate 18 16 16 Blood Pressure Blood Pressure [Le ft Upper Arm] Blood Pressure [Ri ght Arm] 117/70 149/92 H Pulse Oximetry 96 91 97 Oxygen Delivery Me thod Room Air Room Air Room Air Oxygen Flow Rate Fraction of Inspir ed Oxygen 10/13/23 10:48 10/13/23 10:50 10/13/23 10:55 Temperature 98.2 F Pulse Rate 75 60 Pulse Rate [Left P ulse Oximeter] Pulse Rate [Right Pulse Oximeter] Respiratory Rate 22 20 20 Blood Pressure 110/69 105/65 114/69 Blood Pressure [Le ft Upper Arm] Blood Pressure [Ri ght Arm] Pulse Oximetry 93 97 97 Oxygen Delivery Me thod Aerosol Mask Aerosol Mask Aerosol Mask Oxygen Flow Rate 6 6 6 Fraction of Inspir ed Oxygen 98 98 98 10/13/23 11:00 10/13/23 11:05 10/13/23 11:10 Temperature Pulse Rate 65 67 67 Pulse Rate [Left P ulse Oximeter] Pulse Rate [Right Pulse Oximeter] Respiratory Rate 16 15 16 Blood Pressure 122/74 122/71 116/67 Blood Pressure [Le ft Upper Arm] Blood Pressure [Ri ght Arm] Pulse Oximetry 98 98 100 Oxygen Delivery Me thod Aerosol Mask Room Air Oxygen Flow Rate 6 Fraction of Inspir ed Oxygen 98 10/13/23 11:15 10/13/23 11:20 10/13/23 11:30 Temperature 98.0 F 97.0 F L Pulse Rate 67 70 63 Pulse Rate [Left P ulse Oximeter] Pulse Rate [Right Pulse Oximeter] Respiratory Rate 16 16 12 Blood Pressure 123/75 123/75 121/60 Blood Pressure [Le ft Upper Arm] Blood Pressure [Ri ght Arm] Pulse Oximetry 98 9 L 95 Oxygen Delivery Me thod Room Air Room Air OxyMask Oxygen Flow Rate 6 6 Fraction of Inspir ed Oxygen 94 Labs Labs: Laboratory Results - last 24 hr 10/12/23 10/12/23 10/13/23 20:39 22:50 06:02 WBC 20.49 H 15.10 H RBC 5.97 H 4.88 Hgb 17.7 H 14.6 Hct 53.0 43.9 MCV 89 90 MCH 30 30 MCHC 33 33 RDW Coeff of Jani 12.6 13.0 Plt Count 312 230 Neut % (Auto) 91.2 H 84.0 H Lymph % (Auto) 4.4 L 7.2 L [place] % (Auto) 4.1 8.3 Eos % (Auto) 0.0 0.3 Baso % (Auto) 0.1 0.1 Neut # (Auto) 18.70 H 12.70 H Lymph # (Auto) 0.90 1.10 [place] # (Auto) 0.80 1.30 H Eos # (Auto) 0.00 0.00 Baso # (Auto) 0.00 0.00 Abs Immat Gran (auto) 0.00 0.00 Imm/Tot Granulo (auto) 0.2 0.1 Sodium 140 139 Potassium 4.1 4.1 Chloride 108 112 Carbon Dioxide 26 26 Anion Gap 6 L 1 L BUN 17 15 Creatinine 1.0 0.9 Estimated Creat Clear 64.89 64.89 Estimated GFR 78 89 Glucose 144 H 114 Lactate 0.9 0.9 Calcium 9.4 8.2 L Total Bilirubin 1.5 Direct Bilirubin 0.0 AST 20 ALT 24 Alkaline Phosphatase 77 Total Protein 6.5 Albumin 3.7
[2023-10-13] MEDS: ROSUVASTATIN CALCIUM 10 MG TABLET 20 MG PO (18:50)
--- NOTE | 2023-10-13 19:26 | PC.NURSE ---
End of Shift: The patient is pleasant and cooperative. 2 lap sites from surgery.. recovered Ok did need O2 due to drowsiness. Call light within reach. Poor PO intake IV fluids continue. Has not voided report given and Nasreen will bladder scan. Dr Easton was made aware. Reports mild pain in his abdomen... did refuse pain medications this shift. Ice pack to abdomen. Bowel sounds are hypoactive... no gas is passed yet. Did stand at the bedside to try and urinate but had no luck. Patients and son visited today. Tamica DAVIS BSN
[2023-10-13] MEDS: SODIUM CHLORIDE 0.9 % (FLUSH) 10 ML SYRINGE 5 ML IVF (21:45)
[2023-10-13] MEDS: FAMOTIDINE 20 MG TABLET PO (23:10)
[2023-10-14 04:32] VITALS: BP 134/81; PULSE 63; RESP 16; TEMP 36.8; O2SAT 92
[2023-10-14] MEDS: LACTATED RINGERS 1000 ML 1,000 ML 30 ML IV (06:00)
[2023-10-14 06:18] LABS: Basophils Percent Auto 0.2 % (0.0-3.0); Eosinophils Percent Auto 0.5 % (0.0-7.0); Hematocrit 41.4 % (37.0-53.0); Hemoglobin* 13.6 gm/dL (13.5-17.5); Immature Granulocytes Pct Auto 0.2 %; Lymphocytes Percent Auto 11.5 % (20-44); Mean Corpuscular HGB Conc 33 gm/dL (32-36); Mean Corpuscular Hemoglobin 30 pg (26-34); Mean Corpuscular Volume 91 fL (80-100); Monocytes Percent Auto 7.6 % (0.0-11.0); Platelet Count* 225 K/uL (140-440); Red Blood Count 4.54 m/uL (4.30-5.90); White Blood Count* 12.16 K/uL (4.50-11.00)
[2023-10-14 06:28] LABS: Slide Review Reflex No
--- NOTE | 2023-10-14 06:42 | PC.NURSE ---
Pt alert and oriented x3. Afebrile. Pt reports 3/10 abdominal pain, managed with ice pack. Pain medications offered, pt refused stating ?I am fine?. Pt has 2 laps sites that are CDI. Pt is voiding, up ad parish, and tolerating a clear liquid diet. Pt slept throughout most of night. Night uneventful. ?
[2023-10-14 06:44] LABS: Chloride* 111 mmol/L (96-114); Potassium* 3.9 mmol/L (3.6-5.1); Sodium* 137 mmol/L (135-149)
[2023-10-14 06:47] LABS: Anion Gap -3 mEq/L (7-15); Blood Urea Nitrogen* 16 mg/dL (7-30); Carbon Dioxide* 29 mmol/L (20-32); Est. Creatinine Clearance* 64.89; Estimated Glomerular Filt Rate 78 ml/min; Glucose* 94 mg/dL (60-115)
[2023-10-14 06:48] LABS: Calcium* 8.2 mg/dL (8.4-10.6)
[2023-10-14 08:18] VITALS: BP 147/75; PULSE 54; PULSE 63; PULSE 66; RESP 18; TEMP 36.4; O2SAT 96
--- NOTE | 2023-10-14 08:54 | PM.DS1 ---
DS: Providers Provider Date Seen: 10/13/23 Date of admission: 10/12/23 22:59 Primary care physician: Not a Local Provider Admitting Clinician: Desmond Easton MD Consults: 10/12/23 22:59 Consult to Physician [CONS] Urgent Comment: Consulting Provider: Parisa Sevilla Has provider been notified: Yes Attending Physician on discharge: Desmond Easton MD Date of Discharge: 10/14/23 DS: Diagnosis Discharge Diagnosis (1) S/P laparoscopy with lysis of adhesions: Status: Acute DS: Summary Hospital Course Hospital Course: Froy was admitted with 2 days of abdominal pain, nausea and vomiting. He was found to have a bowel obstruction. Because of persistent pain, he was taken to the OR the following morning where he was found to have an internal hernia from an adhesive band. This was released and no bowel needed resection. The following morning, he was passing gas, had not taken any pain medication and was tolerating a diet without nausea. Because intraoperatively his bowel was not markedly edematous, though he was cautioned about post-operative ileus, he was deemed safe for discharge home. Time Spent with Patient Time attestation: Total time spent providing and/or coordinating discharge services: Exam Const: Vital Signs, click to edit/add: Vital Signs - 24 hr 10/13/23 10:48 10/13/23 10:50 10/13/23 10:55 Temperature 98.2 F Pulse Rate 75 60 Pulse Rate [Left P ulse Oximeter] Pulse Rate [Right Pulse Oximeter] Respiratory Rate 22 20 20 Blood Pressure 110/69 105/65 114/69 Blood Pressure [Ri ght Arm] Pulse Oximetry 93 97 97 Oxygen Delivery Me thod Aerosol Mask Aerosol Mask Aerosol Mask Oxygen Flow Rate 6 6 6 Fraction of Inspir ed Oxygen 98 98 98 10/13/23 11:00 10/13/23 11:05 10/13/23 11:10 Temperature Pulse Rate 65 67 67 Pulse Rate [Left P ulse Oximeter] Pulse Rate [Right Pulse Oximeter] Respiratory Rate 16 15 16 Blood Pressure 122/74 122/71 116/67 Blood Pressure [Ri ght Arm] Pulse Oximetry 98 98 100 Oxygen Delivery Me thod Aerosol Mask Room Air Oxygen Flow Rate 6 Fraction of Inspir ed Oxygen 98 10/13/23 11:15 10/13/23 11:20 10/13/23 11:30 Temperature 98.0 F 97.0 F L Pulse Rate 67 70 63 Pulse Rate [Left P ulse Oximeter] Pulse Rate [Right Pulse Oximeter] Respiratory Rate 16 16 12 Blood Pressure 123/75 123/75 121/60 Blood Pressure [Ri ght Arm] Pulse Oximetry 98 9 L 95 Oxygen Delivery Me thod Room Air Room Air OxyMask Oxygen Flow Rate 6 6 Fraction of Inspir ed Oxygen 94 10/13/23 11:45 10/13/23 12:30 10/13/23 13:00 Temperature 97.2 F L 97.2 F L 97.5 F L Pulse Rate 51 L 52 L 60 Pulse Rate [Left P ulse Oximeter] Pulse Rate [Right Pulse Oximeter] Respiratory Rate 12 14 14 Blood Pressure 125/75 123/70 143/82 H Blood Pressure [Ri ght Arm] Pulse Oximetry 95 93 95 Oxygen Delivery Me thod OxyMask Nasal Cannula Nasal Cannula Oxygen Flow Rate 6 3 2 Fraction of Inspir ed Oxygen 10/13/23 14:30 10/13/23 15:30 10/13/23 17:00 Temperature 97.6 F 97.6 F 97.6 F Pulse Rate 63 62 68 Pulse Rate [Left P ulse Oximeter] Pulse Rate [Right Pulse Oximeter] Respiratory Rate 14 14 16 Blood Pressure 150/93 H 123/72 117/92 H Blood Pressure [Ri ght Arm] Pulse Oximetry 98 93 94 Oxygen Delivery Me thod Nasal Cannula Nasal Cannula Room Air Oxygen Flow Rate 1 1 Fraction of Inspir ed Oxygen 10/13/23 21:29 10/13/23 22:15 10/13/23 23:27 Temperature 97.9 F 98.0 F Pulse Rate Pulse Rate [Left P ulse Oximeter] 65 70 Pulse Rate [Right Pulse Oximeter] Respiratory Rate 16 16 16 Blood Pressure Blood Pressure [Ri ght Arm] 143/86 H 139/80 Pulse Oximetry 94 94 Oxygen Delivery Me thod Room Air Room Air Oxygen Flow Rate Fraction of Inspir ed Oxygen 10/14/23 04:32 10/14/23 08:18 10/14/23 08:18 Temperature 98.3 F 97.5 F L Pulse Rate Pulse Rate [Left P ulse Oximeter] 63 63 Pulse Rate [Right Pulse Oximeter] 66 54 L Respiratory Rate 16 18 18 Blood Pressure Blood Pressure [Ri ght Arm] 134/81 147/75 H Pulse Oximetry 92 96 Oxygen Delivery Me thod Room Air Room Air Oxygen Flow Rate Fraction of Inspir ed Oxygen DS: Data Data Completed and Pending Labs on day of discharge: Labs from last 24 hours 10/14/23 05:56 WBC 12.16 H RBC 4.54 Hgb 13.6 Hct 41.4 MCV 91 MCH 30 MCHC 33 RDW Coeff of Jani 13.0 Plt Count 225 Neut % (Auto) 80.0 H Lymph % (Auto) 11.5 L [place] % (Auto) 7.6 Eos % (Auto) 0.5 Baso % (Auto) 0.2 Neut # (Auto) 9.70 H Lymph # (Auto) 1.40 [place] # (Auto) 0.90 Eos # (Auto) 0.10 Baso # (Auto) 0.00 Abs Immat Gran (auto) 0.00 Imm/Tot Granulo (auto) 0.2 Sodium 137 Potassium 3.9 Chloride 111 Carbon Dioxide 29 Anion Gap -3 L BUN 16 Creatinine 1.0 Estimated Creat Clear 64.89 Estimated GFR 78 Glucose 94 Calcium 8.2 L Discharge Plan Discharge Disposition: Home, Self-Care Date of Admission: 10/12/23 22:59 Attending Provider on Discharge: Parisa Sevilla Consulting Providers: Parisa Sevilla Primary Care Provider: Provider,Not a Local Condition: Unchanged Anticipated Discharge Date/Time: 10/14/23 11:00 Discharge Medications: New hydrocodone-acetaminophen 5-325 mg Tablet 1 - 2 tab PO Q6H PRN (Reason: Pain) Qty: 7 0RF Continued losartan 50 mg tablet 50 mg PO DAILY rosuvastatin 20 mg tablet 20 mg PO QPM famotidine 20 mg tablet 20 mg PO DAILY Discharge Orders: Discharge Order (Routine); Ordered 10/14/23 Ordered By: Parisa Sevilla Consulting provider completed their portion of the discharge: Yes Patient Education: General Anesthesia (DC), Laparoscopic Appendectomy (DC), Post-Operative Instructions: Appendectomy Additional Instructions: Wound care: Your sutures are under the skin and will dissolve over time. Leave steri strips (white bandages) over incisions until they fall off (or remove after 7 days). OK to shower tomorrow but avoid bathing, soaking or swimming for 2 weeks. Pat the incisions dry. No need to wash or scrub the area. Apply ice to the area as needed for swelling. It is also OK to use a heating pad if this provides more comfort to you. Pain control: You were prescribed a pain medication. This medication contains acetaminophen (Tylenol). If you are taking your prescribed pain pills 4 times daily, do not take additional acetaminophen. As your pain improves, you can try taking acetaminophen instead of the prescribed pain pill. It is ok to take Ibuprofen or Naproxen (per directions on packaging). This medication helps with inflammation and swelling. Take an [id number] stool softener while you are taking prescribed pain medications to help alleviate constipation. I recommend Senna and/or Colace. Take as directed on package. If you have not had a bowel movement in 3 days, try taking Miralax as directed on the package. All of these are available over the counter. Follow-up Follow up with Dr. Sevilla in 2-3 weeks Please call if you are experiencing severe pain, nausea, vomiting, difficulty urinating, fever or have not had bowel movement in 4 days after surgery. Activity Level: No strenuous activity Activity Detail: No lifting more than 20 pounds for 2 weeks. Discharge Diet: Regular Diet Detail: Go slowly with your diet until you have begun to have bowel movements - your bowels do not work right away after surgery which can cause fullness and discomfort. Focus on hydration with liquids until things are moving through more normally. Follow Up Appointments: Parisa Sevilla MD [Staff Physician] - Provider,Not a Local [Primary Care Provider] - Forms: [facility] Inst[facility]
--- NOTE | 2023-10-14 09:38 | P.DS_ITS ---
DS: Providers Provider Date Seen: 10/14/23 Date of admission: 10/12/23 22:59 Primary care physician: Not a Local Provider Admitting Clinician: Desmond Easton MD Consults: 10/12/23 22:59 Consult to Physician [CONS] Urgent Comment: Consulting Provider: Parisa Sevilla Has provider been notified: Yes Attending Physician on discharge: SAGRARIO Khan, [facility] Date of Discharge: 10/14/23 DS: Diagnosis Discharge Diagnosis (1) Small bowel obstruction: Status: Acute Problem details: Small-bowel obstruction with no apparent cause on admission He is discharged on POD#1 status post exploratory laparoscopy, lysis of adhesions, Dr. Sevilla Tolerated advancing diet, bowel function has returned. Patient is discharged with postoperative recommendations by General surgery (2) Hypertension: Status: Acute Problem details: Continue losartan, statin for hyperlipidemia DS: Summary Hospital Course Hospital Course: Froy was admitted with 2 days of abdominal pain, nausea and vomiting. He was found to have a bowel obstruction. Because of persistent pain, he was taken to the OR the following morning where he was found to have an internal hernia from an adhesive band. This was released and no bowel needed resection. The following morning, he was passing gas, had not taken any pain medication and was tolerating a diet without nausea. Because intraoperatively his bowel was not markedly edematous, though he was cautioned about post-operative ileus, he was deemed safe for discharge home. Status at Discharge Overall status at discharge: patient is progressing back to baseline Time Spent with Patient Time attestation: Total time spent providing and/or coordinating discharge services: Time spent: Greater than 30 minutes Exam Narrative: Exam Narrative: PHYSICAL EXAM General: Pleasant, conversant, NAD Cardiovascular: RRR Pulmonary: No dyspnea Abdomen : Soft, nondistended, appropriate postoperative tenderness, incision sites appear to be healing appropriately Neurological: Alert, answering questions appropriately Skin: Warm, dry. Const: Vital Signs, click to edit/add: Vital Signs - 24 hr 10/13/23 10:48 10/13/23 10:50 10/13/23 10:55 Temperature 98.2 F Pulse Rate 75 60 Pulse Rate [Left P ulse Oximeter] Pulse Rate [Right Pulse Oximeter] Respiratory Rate 22 20 20 Blood Pressure 110/69 105/65 114/69 Blood Pressure [Ri ght Arm] Pulse Oximetry 93 97 97 Oxygen Delivery Me thod Aerosol Mask Aerosol Mask Aerosol Mask Oxygen Flow Rate 6 6 6 Fraction of Inspir ed Oxygen 98 98 98 10/13/23 11:00 10/13/23 11:05 10/13/23 11:10 Temperature Pulse Rate 65 67 67 Pulse Rate [Left P ulse Oximeter] Pulse Rate [Right Pulse Oximeter] Respiratory Rate 16 15 16 Blood Pressure 122/74 122/71 116/67 Blood Pressure [Ri ght Arm] Pulse Oximetry 98 98 100 Oxygen Delivery Me thod Aerosol Mask Room Air Oxygen Flow Rate 6 Fraction of Inspir ed Oxygen 98 10/13/23 11:15 10/13/23 11:20 10/13/23 11:30 Temperature 98.0 F 97.0 F L Pulse Rate 67 70 63 Pulse Rate [Left P ulse Oximeter] Pulse Rate [Right Pulse Oximeter] Respiratory Rate 16 16 12 Blood Pressure 123/75 123/75 121/60 Blood Pressure [Ri ght Arm] Pulse Oximetry 98 9 L 95 Oxygen Delivery Me thod Room Air Room Air OxyMask Oxygen Flow Rate 6 6 Fraction of Inspir ed Oxygen 94 10/13/23 11:45 10/13/23 12:30 10/13/23 13:00 Temperature 97.2 F L 97.2 F L 97.5 F L Pulse Rate 51 L 52 L 60 Pulse Rate [Left P ulse Oximeter] Pulse Rate [Right Pulse Oximeter] Respiratory Rate 12 14 14 Blood Pressure 125/75 123/70 143/82 H Blood Pressure [Ri ght Arm] Pulse Oximetry 95 93 95 Oxygen Delivery Me thod OxyMask Nasal Cannula Nasal Cannula Oxygen Flow Rate 6 3 2 Fraction of Inspir ed Oxygen 10/13/23 14:30 10/13/23 15:30 10/13/23 17:00 Temperature 97.6 F 97.6 F 97.6 F Pulse Rate 63 62 68 Pulse Rate [Left P ulse Oximeter] Pulse Rate [Right Pulse Oximeter] Respiratory Rate 14 14 16 Blood Pressure 150/93 H 123/72 117/92 H Blood Pressure [Ri ght Arm] Pulse Oximetry 98 93 94 Oxygen Delivery Me thod Nasal Cannula Nasal Cannula Room Air Oxygen Flow Rate 1 1 Fraction of Inspir ed Oxygen 10/13/23 21:29 10/13/23 22:15 10/13/23 23:27 Temperature 97.9 F 98.0 F Pulse Rate Pulse Rate [Left P ulse Oximeter] 65 70 Pulse Rate [Right Pulse Oximeter] Respiratory Rate 16 16 16 Blood Pressure Blood Pressure [Ri ght Arm] 143/86 H 139/80 Pulse Oximetry 94 94 Oxygen Delivery Me thod Room Air Room Air Oxygen Flow Rate Fraction of Inspir ed Oxygen 10/14/23 04:32 10/14/23 08:18 10/14/23 08:18 Temperature 98.3 F 97.5 F L Pulse Rate Pulse Rate [Left P ulse Oximeter] 63 63 Pulse Rate [Right Pulse Oximeter] 66 54 L Respiratory Rate 16 18 18 Blood Pressure Blood Pressure [Ri t Arm] 134/81 147/75 H Pulse Oximetry 92 96 Oxygen Delivery Me thod Room Air Room Air Oxygen Flow Rate Fraction of Inspir ed Oxygen DS: Data Data Completed and Pending Labs on day of discharge: Labs from last 24 hours 10/14/23 05:56 WBC 12.16 H RBC 4.54 Hgb 13.6 Hct 41.4 MCV 91 MCH 30 MCHC 33 RDW Coeff of Jani 13.0 Plt Count 225 Neut % (Auto) 80.0 H Lymph % (Auto) 11.5 L [place] % (Auto) 7.6 Eos % (Auto) 0.5 Baso % (Auto) 0.2 Neut # (Auto) 9.70 H Lymph # (Auto) 1.40 [place] # (Auto) 0.90 Eos # (Auto) 0.10 Baso # (Auto) 0.00 Abs Immat Gran (auto) 0.00 Imm/Tot Granulo (auto) 0.2 Sodium 137 Potassium 3.9 Chloride 111 Carbon Dioxide 29 Anion Gap -3 L BUN 16 Creatinine 1.0 Estimated Creat Clear 64.89 Estimated GFR 78 Glucose 94 Calcium 8.2 L Discharge Plan Discharge Disposition: Home, Self-Care Date of Admission: 10/12/23 22:59 Attending Provider on Discharge: Parisa Sevilla Consulting Providers: Parisa Sevilla Primary Care Provider: Provider,Not a Local Condition: Unchanged Anticipated Discharge Date/Time: 10/14/23 11:00 Discharge Medications: New hydrocodone-acetaminophen 5-325 mg Tablet 1 - 2 tab PO Q6H PRN (Reason: Pain) Qty: 7 0RF Continued losartan 50 mg tablet 50 mg PO DAILY rosuvastatin 20 mg tablet 20 mg PO QPM famotidine 20 mg tablet 20 mg PO DAILY Discharge Orders: Discharge Order (Routine); Ordered 10/14/23 Ordered By: Parisa Sevilla Consulting provider completed their portion of the discharge: Yes Patient Education: General Anesthesia (DC), Laparoscopic Appendectomy (DC), Post-Operative Instructions: Appendectomy Additional Instructions: Wound care: Your sutures are under the skin and will dissolve over time. Leave steri strips (white bandages) over incisions until they fall off (or remove after 7 days). OK to shower tomorrow but avoid bathing, soaking or swimming for 2 weeks. Pat the incisions dry. No need to wash or scrub the area. Apply ice to the area as needed for swelling. It is also OK to use a heating pad if this provides more comfort to you. Pain control: You were prescribed a pain medication. This medication contains acetaminophen (Tylenol). If you are taking your prescribed pain pills 4 times daily, do not take additional acetaminophen. As your pain improves, you can try taking acetaminophen instead of the prescribed pain pill. It is ok to take Ibuprofen or Naproxen (per directions on packaging). This medication helps with inflammation and swelling. Take an gvhi-vhu-[id number] stool softener while you are taking prescribed pain medications to help alleviate constipation. I recommend Senna and/or Colace. Take as directed on package. If you have not had a bowel movement in 3 days, try taking Miralax as directed on the package. All of these are available over the counter. Follow-up Follow up with Dr. Sevilla in 2-3 weeks Please call if you are experiencing severe pain, nausea, vomiting, difficulty urinating, fever or have not had bowel movement in 4 days after surgery. Activity Level: No strenuous activity Activity Detail: No lifting more than 20 pounds for 2 weeks. Discharge Diet: Regular Diet Detail: Go slowly with your diet until you have begun to have bowel mo vements - your bowels do not work right away after surgery which can cause fullness and discomfort. Focus on hydration with liquids until things are moving through more normally. Follow Up Appointments: Parisa Sevilla MD [Staff Physician] - 10/24/23 9:30 am ([facility] [place] for follow up.) Provider,Not a Local [Primary Care Provider] - Forms: [employer] Info Instructions
[2023-10-14 11:00] VITALS: BP 115/69; PULSE 64; RESP 18; O2SAT 94
--- NOTE | 2023-10-14 14:49 | PC.NURSE ---
Nursing Care Hours: [id number] Pt this shift calm and cooperative, alert and oriented. No c/o pain. Reports passing gas. Lap sites intact with steri strips, scant redness around incisions. Bowel sounds hypo active. Advanced diet to regular, tolerating well. Primer Powder Blender Wet went over instructions for discharge with pt and adult child. No questions or concerns from pt. IV removed, papers signed. Wheeled out to vehicle in stable condition.
== END 2023-10-14 13:58 | disposition home or self-care (01) | DRG 336 ==
LOC: ED 23:13 → MEDSURG 23:28
PROVIDERS: Surgery; Admitting Provider Family Medicine; Emergency Provider Emergency Medicine Emergency Medical Services; Visit Provider Family Medicine
PROC: 0DTJ4ZZ Resection of Appendix, Percutaneous Endoscopic Approach (ICD-10-PCS; CPT 44970; principal; 2023-10-13 09:30)
DX: K46.0 Unspecified abdominal hernia with obstruction, without gangrene (principal); K56.50 Intestinal adhesions [bands], unspecified as to partial versus complete obstruction; I10 Essential (primary) hypertension; N20.0 Calculus of kidney; K57.30 Diverticulosis of large intestine without perforation or abscess without bleeding; K21.9 Gastro-esophageal reflux disease without esophagitis; E78.5 Hyperlipidemia, unspecified; Z53.31 Laparoscopic surgical procedure converted to open procedure
CPT/HCPCS: 00840; 36415; 74177; 80048; 80076; 83605; 85025; 93005; 99100; 99284; 99285; A9270; J0330; J0665; J1100; J1170; J2250; J2310; J2405; J2543; J2704; J2710; J3010; J7030; J7120; Q9967